=== PATIENT | female | born 1965 | race Caucasian/White ===

== ENCOUNTER → 2018-01-30 15:43 | Outpatient (CLI) | payer OTHER, SELFPAY ==
--- NOTE | 2018-01-30 15:44 | DI.RAD.S_ITS ---
PROCEDURE: XR HIP W PEL IF DONE LT 2V INDICATIONS: increasing left hip pain x6 months TECHNIQUE: AP pelvis with lateral view(s) of the left hip(s). COMPARISON: None. FINDINGS: Bones: No fractures or dislocations. Pelvic ring appears intact. No suspicious bony lesions. Soft tissues: The visualized bowel gas pattern is normal. No suspicious soft tissue calcifications. IMPRESSION: No trauma found. Mild to moderate symmetric hip joint osteoarthritis is present, and a source of asymmetric left-sided predominant hip pain is not found. Dictated by: Sachin Ramirez M.D. on 01/30/2018 at 17:19 Approved by: Sachin Ramirez M.D. on 01/30/2018 at 17:19
== END ==
PROVIDERS: PCP Family Medicine; Visit Provider Family Medicine
DX: M16.12 Unilateral primary osteoarthritis, left hip (principal); M25.552 Pain in left hip
CPT/HCPCS: 73502

== ENCOUNTER 2018-05-08 16:45 | Outpatient (RCR) | payer OTHER, SELFPAY ==
--- NOTE | 2018-04-03 17:20 | PT.OIE ---
Current Diagnoses Unilateral primary osteoarthritis, left hip (04/03/18) Stiffness of left hip, not elsewhere classified (04/03/18) Muscle weakness (generalized) (04/03/18) Past Medical History (Last Reviewed 02/02/18 @ 15:53 by Taty Goldsmith DO) Colon polyps (Chronic ~2014) History of cold sores (Chronic) Hypothyroidism (Chronic ~2006) Migraines (Chronic ~2007) Psoriasis (Chronic ~1984) Scoliosis (Chronic) Voice absence (Chronic) Abnormal Pap smear of cervix (Resolved ~1989) Chicken pox (Resolved ~1973) Collapsed lung (Resolved ~2006) Mumps (Resolved ~1974) Past Surgical History (Last Reviewed 02/02/18 @ 15:53 by Taty Goldsmith DO) Anesthesia (Resolved) Fracture of larynx (Resolved ~2006) History of throat surgery (Resolved) History of third molar tooth extraction (~1989) Provider Visit Care Team Role Provider Type Taty Goldsmith DO Attending Provider Physician Family Provider Primary Care Provider Specialty: Family Practice Address: [address] [place] [address], [facility] Email: [email or web address] Physical Therapy Initial Evaluation PT-OP-A Visit Information Start: 04/03/18 17:25 Freq: Status: Active Protocol: Document 04/03/18 17:20 [facility] (Rec: 04/03/18 17:58 [facility] [email or web address]) Out-Patient Physical Therapy Visit Information Visit Information Visit Type Initial Evaluation Visit Start Time 16:40 Visit Stop Time 17:20 Total Visit Minutes 40 Visit Number 1 Number of [employer] CAR [employer]IVER Visits 0 Evaluation Information Evaluation Date 04/03/18 PT-OP-B Current Condition Start: 04/03/18 17:25 Freq: Status: Active Protocol: Document 04/03/18 17:20 [facility] (Rec: 04/03/18 17:58 [facility] [email or web address]) Current Condition History of Current Condition Onset Date 6 mos. ago Current Complaints L groin pain, sometimes posterior hip/sciatic pain L side History of Current Condition Pt is a 52 y/o female presenting to physical therapy with a c/o L groin and hip pain, along with occasional low back and sciatic-type pain . Pt notes that the pain is variable, no specific pattern with onset or increase of pain . 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 She also admits that 6 months ago she now has a 2 y/o living with her, which has increased the amount of bending and lifting she is required to do as well. Imaging done of the L hip (see below). No imaging for low back performed. Pain reported down to the anterior knee, denies pain below the knee with verbal questioning. She works at a desk, but she does have a standing desk option while at work. Prior Treatments and Tests L hip radiograph- mild to moderate symmetric hip joint OA present. Future Testing and Treatments Planned low back radiograph if no progress with PT. Treatment Goals Patient/Caregiver Goals decrease pain Prior Functional Status Baseline Function- Gait indep. community ambulator without device Current Functional Impairments (Reported) Functional Limitations- Mobility/Gait pain limits her ability to care for her son and 2 y/o family member. PT-OP-C Subjective Start: 04/03/18 17:25 Freq: Status: Active Protocol: Document 04/03/18 17:20 [facility] (Rec: 04/03/18 17:58 [facility] [email or web address]) OP-PT Pain Assessment Location L groin Pain Location Details range 2-9 Intensity 9 Scale Used Numeric (1 - 10) Description Sharp Shooting Stabbing Frequency Intermittent Pain Alleviating Factors None PT-OP-F Manual Assessment Start: 04/03/18 17:25 Freq: Status: Active Protocol: Document 04/03/18 17:20 [facility] (Rec: 04/03/18 17:58 [facility] [email or web address]) Manual Assessments Soft Tissue Assessment Soft Tissue Mobility Assessment tender to palpation: L IT band , piriformis, TFL PT-OP-G Mobility & Gait Start: 04/03/18 17:25 Freq: Status: Active Protocol: Document 04/03/18 17:20 [facility] (Rec: 04/03/18 17:58 [facility] [email or web address]) OP Gait Assessment Gait Deviations General Gait Pattern Antalgic Lateral Trunk Lean Factors Limiting Gait Function Factors Limiting Gait Function Limited Range of Motion Pain PT-OP-H Neuro Start: 04/03/18 17:25 Freq: Status: Active Protocol: Document 04/03/18 17:20 [facility] (Rec: 04/03/18 17:58 [facility] [email or web address]) Sensation Evaluation Gross Sensation Gross Sensation WNL Deep Tendon Reflex & Clonus Assessment Deep Tendon Reflex Bilateral Achilles Deep Tendon Reflex 1+ Diminished Bilateral Patellar Deep Tendon Reflex 2+ Normal Ankle Clonus Bilateral Clonus Assessment Absent PT-OP-J Posture/Palpation/Skin Start: 04/03/18 17:25 Freq: Status: Active Protocol: Document 04/03/18 17:20 [facility] (Rec: 04/03/18 17:58 [facility] [email or web address]) Posture Evaluation Comments Posture Comments R elevated iliac crest in standing, slight R lateral trunk lean PT-OP-K Range of Motion Start: 04/03/18 17:25 Freq: Status: Active Protocol: Document 04/03/18 17:20 [facility] (Rec: 04/03/18 17:58 [facility] [email or web address]) Lumbar Spine Range of Motion Lumbar Spine Active Degrees Testing Position Standing Flexion 70 Extension 14 Comments no pain Hip Goniometric Range of Motion Hip Measured in Degrees Right Passive Testing Position Supine Flexion w/Knee Flexed 110 Internal Rotation 30 External Rotation 60 Left Passive Testing Position Supine Flexion w/Knee Flexed 110 Internal Rotation 20 External Rotation 35 PT-OP-L Special Tests Start: 04/03/18 17:25 Freq: Status: Active Protocol: Document 04/03/18 17:20 [facility] (Rec: 04/03/18 17:58 [facility] [email or web address]) Special Tests Lumbar Spine Special Tests Straight Leg Raise Test Results negative Slump Test Results negative Comments femoral and sciatic Prone Instability Test Test Results negative Hip Special Tests Scour Test Test Results negative CLEO Test Results positive L, negative R Buttocks Sign Test Results negative Other Special Tests Special Tests SI joint provocation: negative bilaterally PT-OP-M Strength Start: 04/03/18 17:25 Freq: Status: Active Protocol: Document 04/03/18 17:20 [facility] (Rec: 04/03/18 17:58 [facility] [email or web address]) Hip Strength Hip Manual Muscle Testing Right Flexion (L2) 5 Normal Abduction 3+ Fair+ Adduction 5 Normal External Rotation 4 Good Internal Rotation 5 Normal Left Flexion (L2) 4 Good Abduction 3 Fair Adduction 4+ Good+ External Rotation 4- Good- Internal Rotation 4 Good Knee Strength Knee Manual Muscle Testing Right Flexion (S2) 5 Normal Extension (L3) 5 Normal Left Flexion (S2) 5 Normal Extension (L3) 5 Normal Ankle/Foot Strength Ankle and Foot Manual Muscle Testing Right Dorsiflexion (L4) 5 Normal Left Dorsiflexion (L4) 5 Normal Toe Strength Toe Manual Muscle Testing Right Great Toe Extension 5 Normal Left Great Toe Extension 4 Good PT-OP-Q Treatments Start: 04/03/18 17:25 Freq: Status: Active Protocol: Document 04/03/18 17:20 [facility] (Rec: 04/03/18 17:58 [facility] [email or web address]) Therapeutic Exercises Supine Exercises figure 4 stretch Side left Reps/Minutes 2x15 sec piriformis stretch Side left Reps/Minutes 2x15 sec Transverse abdominal activation Side bilateral Reps/Minutes 5 Comments 5 sec hold Sidelying Exercises clamshell Side left Reps/Minutes 1x10 PT-OP-T Assessment and Plan Start: 04/03/18 17:25 Freq: Status: Active Protocol: Document 04/03/18 17:20 [facility] (Rec: 04/03/18 17:58 [facility] [email or web address]) Physical Therapy Assessment Rehab Potential Rehabilitation Potential Good Evaluation Complexity Number of Personal Factors/Comorbidities 1-2 Number of Body Systems Impaired 3 Clinical Presentation at Evaluation Stable Impairments Impairments Activity Tolerance Functional Activities Functional Mobility Gait Pain Posture ROM Soft Tissue Mobility Strength Goals L hip ROM Impairment impaired L hip ROM Compound Mixer Goal (LTG) PROM L hip to equal to R non- affected side prior to d/c. LTG Duration 8 weeks LE weakness Impairment Lower extremity weakness Short Term Goal (STG) hip abduction 4-/5 or greater bilaterally, L hip 4+/5 or greater with manual muscle testing. STG Duration 4 weeks Compound Mixer Goal (LTG) Bilateral hip abduction 4/5 or greater, and L hip 5/5 with manual muscle testing. LTG Duration 8 weeks pain Impairment L hip and groin pain 9/10 Short Term Goal (STG) Decrease pain to 6/10 or less. STG Duration 4 weeks Compound Mixer Goal (LTG) Decrease pain to 4/10 or less, allowing pt to tolerate playing with her 2 y/o family member and assist son with transfers. LTG Duration 8 weeks Lower Extremity Functional Scale Impairment decreased functional activity tolerance (LEFS) Short Term Goal (STG) 55/80 or greater with Lower Extremity Functional Scale to demonstrate improvements with functional activity tolerance. STG Duration 4 weeks Compound Mixer Goal (LTG) 65/80 or greater with Lower Extremity Functional Scale to demonstrate improvements with functional activity tolerance. LTG Duration 8 weeks Assessment Summary Assessment Pt presents with signs consistent of L hip OA and impingement. Sciatic-like symptoms unable to be reproduced today, and lumbar testing negative at this time. Pt admits that she has had no issues with low back today, but that does come and go, therefore will continue to monitor this. Pt's L hip ROM is limited, as well as weakness demonstrated in the L hip in all manual muscle testing. Knee strength was normal, however, great toe extension graded weaker on the L compared to the R, therefore lumbar etiology cannot be ruled out yet. Pt would benefit from manual therapy to improve joint mobility and ROM and decrease tension in soft tissue, LE strengthening, gait training, and core stability to improve standing posture and overall activity tolerance. Physical Therapy Plan Frequency and Duration Frequency of Treatment 2x/Week Duration of Treatment 8 weeks Plan of Care Start Date 04/03/18 Plan of Care End Date 05/29/18 Therapeutic Interventions Therapeutic Interventions Aquatic Therapy Gait Training Home Exercise Program Joint Mobilizations Manual Therapy Neuromuscular Re-education Orthotic/Prosthetic Management Patient/Caregiver Education Self-Care/Home Management Sensory Integration Soft Tissue Mobilization Taping Therapeutic Activities Therapeutic Exercises Modalities Cold Pack/Ice Massage Electric Stimulation Hot Packs Traction- Mechanical Ultrasound Next Visit Focus/Plan Next Note Type Treatment Note Next Visit Plan L hip SLR, Shuttle Recovery leg press, recumbent stepper; manual joint moblizations and STR
--- NOTE | 2018-04-10 17:25 | PT.OTN ---
Current Diagnoses Unilateral primary osteoarthritis, left hip (04/10/18) Physical Therapy Treatment Note PT-OP-A Visit Information Start: 04/03/18 17:25 Freq: Status: Active Protocol: Document 04/10/18 17:25 [facility] (Rec: 04/10/18 17:32 [facility] [email or web address]) Out-Patient Physical Therapy Visit Information Visit Information Visit Type Treatment Note Visit Start Time 16:40 Visit Stop Time 17:25 Total Visit Minutes 45 Visit Number 2 Number of BANQUET LEAD Visits 0 Evaluation Information Evaluation Date 04/03/18 PT-OP-B Current Condition Start: 04/03/18 17:25 Freq: Status: Active Protocol: Document 04/03/18 17:20 [facility] (Rec: 04/03/18 17:58 [facility] [email or web address]) Current Condition History of Current Condition Onset Date 6 mos. ago Current Complaints L groin pain, sometimes posterior hip/sciatic pain L side History of Current Condition Pt is a 52 y/o female presenting to physical therapy with a c/o L groin and hip pain, along with occasional low back and sciatic-type pain . Pt notes that the pain is variable, no specific pattern with onset or increase of pain . 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 She also admits that 6 months ago she now has a 2 y/o living with her, which has increased the amount of bending and lifting she is required to do as well. Imaging done of the L hip (see below). No imaging for low back performed. Pain reported down to the anterior knee, denies pain below the knee with verbal questioning. She works at a desk, but she does have a standing desk option while at work. Prior Treatments and Tests L hip radiograph- mild to moderate symmetric hip joint OA present. Future Testing and Treatments Planned low back radiograph if no progress with PT. Treatment Goals Patient/Caregiver Goals decrease pain Prior Functional Status Baseline Function- Gait indep. community ambulator without device Current Functional Impairments (Reported) Functional Limitations- Mobility/Gait pain limits her ability to care for her son and 2 y/o family member. PT-OP-C Subjective Start: 04/03/18 17:25 Freq: Status: Active Protocol: Document 04/10/18 17:25 [facility] (Rec: 04/10/18 17:32 [facility] [email or web address]) OP-PT Subjective Patient Comments Patient Comments Pt is feeling better, less pain in the groin and L hip while at work over the past 2 days. PT-OP-F Manual Assessment Start: 04/03/18 17:25 Freq: Status: Active Protocol: Document 04/10/18 17:25 [facility] (Rec: 04/10/18 17:32 [facility] [email or web address]) Manual Assessments Joint Mobility Assessment Joint Mobility Assessment (+) impingement L hip @ 100 deg flexion with knee bent; after manual therapy, up to 110 deg. without pain. PT-OP-G Mobility & Gait Start: 04/03/18 17:25 Freq: Status: Active Protocol: Document 04/03/18 17:20 [facility] (Rec: 04/03/18 17:58 [facility] [email or web address]) OP Gait Assessment Gait Deviations General Gait Pattern Antalgic Lateral Trunk Lean Factors Limiting Gait Function Factors Limiting Gait Function Limited Range of Motion Pain PT-OP-H Neuro Start: 04/03/18 17:25 Freq: Status: Active Protocol: Document 04/03/18 17:20 [facility] (Rec: 04/03/18 17:58 [facility] [email or web address]) Sensation Evaluation Gross Sensation Gross Sensation WNL Deep Tendon Reflex & Clonus Assessment Deep Tendon Reflex Bilateral Achilles Deep Tendon Reflex 1+ Diminished Bilateral Patellar Deep Tendon Reflex 2+ Normal Ankle Clonus Bilateral Clonus Assessment Absent PT-OP-J Posture/Palpation/Skin Start: 04/03/18 17:25 Freq: Status: Active Protocol: Document 04/03/18 17:20 [facility] (Rec: 04/03/18 17:58 [facility] [email or web address]) Posture Evaluation Comments Posture Comments R elevated iliac crest in standing, slight R lateral trunk lean PT-OP-K Range of Motion Start: 04/03/18 17:25 Freq: Status: Active Protocol: Document 04/03/18 17:20 [facility] (Rec: 04/03/18 17:58 [facility] [email or web address]) Lumbar Spine Range of Motion Lumbar Spine Active Degrees Testing Position Standing Flexion 70 Extension 14 Comments no pain Hip Goniometric Range of Motion Hip Measured in Degrees Right Passive Testing Position Supine Flexion w/Knee Flexed 110 Internal Rotation 30 External Rotation 60 Left Passive Testing Position Supine Flexion w/Knee Flexed 110 Internal Rotation 20 External Rotation 35 PT-OP-L Special Tests Start: 04/03/18 17:25 Freq: Status: Active Protocol: Document 04/03/18 17:20 [facility] (Rec: 04/03/18 17:58 [facility] [email or web address]) Special Tests Lumbar Spine Special Tests Straight Leg Raise Test Results negative Slump Test Results negative Comments femoral and sciatic Prone Instability Test Test Results negative Hip Special Tests Scour Test Test Results negative CLEO Test Results positive L, negative R Buttocks Sign Test Results negative Other Special Tests Special Tests SI joint provocation: negative bilaterally PT-OP-M Strength Start: 04/03/18 17:25 Freq: Status: Active Protocol: Document 04/03/18 17:20 [facility] (Rec: 04/03/18 17:58 [facility] [email or web address]) Hip Strength Hip Manual Muscle Testing Right Flexion (L2) 5 Normal Abduction 3+ Fair+ Adduction 5 Normal External Rotation 4 Good Internal Rotation 5 Normal Left Flexion (L2) 4 Good Abduction 3 Fair Adduction 4+ Good+ External Rotation 4- Good- Internal Rotation 4 Good Knee Strength Knee Manual Muscle Testing Right Flexion (S2) 5 Normal Extension (L3) 5 Normal Left Flexion (S2) 5 Normal Extension (L3) 5 Normal Ankle/Foot Strength Ankle and Foot Manual Muscle Testing Right Dorsiflexion (L4) 5 Normal Left Dorsiflexion (L4) 5 Normal Toe Strength Toe Manual Muscle Testing Right Great Toe Extension 5 Normal Left Great Toe Extension 4 Good PT-OP-Q Treatments Start: 04/03/18 17:25 Freq: Status: Active Protocol: Document 04/10/18 17:25 [facility] (Rec: 04/10/18 17:32 [facility] [email or web address]) Cardio Equipment Recumbent Elliptical (Biodex) Duration (Minutes) 5 Resistance 1 Gym Equipment Shuttle Recovery Bilateral Squats Details L2 band around lower thighs Resistance 75 lbs Shuttle Recovery Platform Stable Reps/Time x20 Therapeutic Ball bridging Exercise Details bridging with ball Ball Size/Color 55 cm Body Position Supine Reps/Duration x10 LTR Exercise Details lower trunk rotation Ball Size/Color 55 cm Body Position Supine Reps/Duration x10 Therapeutic Exercises Supine Exercises SLR flexion Supine Exercise Name straight leg raise- hip flexion Side left Reps/Minutes x10 PPT Supine Exercise Name posterior pelvic tilt Side bilateral Reps/Minutes x10 figure 4 stretch Side left Reps/Minutes 2x15 sec piriformis stretch Side left Reps/Minutes 2x15 sec Transverse abdominal activation Side bilateral Reps/Minutes 5 Comments 5 sec hold Sidelying Exercises clamshell Side left Reps/Minutes 1x12 Manual Therapy Treatment Joint Mobilizations L hip Joint L hip Direction inferior, lateral Grade III Body Position Hooklying Reps/Duration 6 min Manual Techniques MET Type R hip flexion, L hip extension followed by B hip adduction Body Position Hooklying Reps/Duration 4 min Comments to correct L anterior ilial rotation. PT-OP-T Assessment and Plan Start: 04/03/18 17:25 Freq: Status: Active Protocol: Document 04/10/18 17:25 [facility] (Rec: 04/10/18 17:32 [facility] [email or web address]) Physical Therapy Assessment Assessment Summary Assessment Pt able to flex hip to 110 degrees without c/o pain in the groin today after manual therapy (hip + knee flexion). Pt able to perform HEP with cuing, given sheet to recall exercises. Pt does have excessive genu valgum with Shuttle leg press, but band around thighs assisting with visual and tactile cuing. Physical Therapy Plan Frequency and Duration Frequency of Treatment 2x/Week Duration of Treatment 8 weeks Plan of Care Start Date 04/03/18 Plan of Care End Date 05/29/18 Next Visit Focus/Plan Next Note Type Treatment Note Next Visit Plan hip extension/gluteal strengthening, review HEP
--- NOTE | 2018-04-24 17:26 | PT.OTN ---
Current Diagnoses Unilateral primary osteoarthritis, left hip (04/24/18) Physical Therapy Treatment Note PT-OP-A Visit Information Start: 04/03/18 17:25 Freq: Status: Active Protocol: Document 04/24/18 17:26 [facility] (Rec: 04/24/18 17:39 [facility] [email or web address]) Out-Patient Physical Therapy Visit Information Visit Information Visit Type Treatment Note Visit Start Time 16:46 Visit Stop Time 17:26 Total Visit Minutes 40 Visit Number 3 Number of HAT SIZER Visits 0 Evaluation Information Evaluation Date 04/03/18 PT-OP-B Current Condition Start: 04/03/18 17:25 Freq: Status: Active Protocol: Document 04/03/18 17:20 [facility] (Rec: 04/03/18 17:58 [facility] [email or web address]) Current Condition History of Current Condition Onset Date 6 mos. ago Current Complaints L groin pain, sometimes posterior hip/sciatic pain L side History of Current Condition Pt is a 52 y/o female presenting to physical therapy with a c/o L groin and hip pain, along with occasional low back and sciatic-type pain . Pt notes that the pain is variable, no specific pattern with onset or increase of pain . 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 She also admits that 6 months ago she now has a 2 y/o living with her, which has increased the amount of bending and lifting she is required to do as well. Imaging done of the L hip (see below). No imaging for low back performed. Pain reported down to the anterior knee, denies pain below the knee with verbal questioning. She works at a desk, but she does have a standing desk option while at work. Prior Treatments and Tests L hip radiograph- mild to moderate symmetric hip joint OA present. Future Testing and Treatments Planned low back radiograph if no progress with PT. Treatment Goals Patient/Caregiver Goals decrease pain Prior Functional Status Baseline Function- Gait indep. community ambulator without device Current Functional Impairments (Reported) Functional Limitations- Mobility/Gait pain limits her ability to care for her son and 2 y/o family member. PT-OP-C Subjective Start: 04/03/18 17:25 Freq: Status: Active Protocol: Document 04/24/18 17:26 [facility] (Rec: 04/24/18 17:39 [facility] [email or web address]) OP-PT Subjective Patient Comments Patient Comments Pt states that her L hip and groin has not been painful this past week, but has had intermittent low back pain. PT-OP-F Manual Assessment Start: 04/03/18 17:25 Freq: Status: Active Protocol: Document 04/10/18 17:25 [facility] (Rec: 04/10/18 17:32 [facility] [email or web address]) Manual Assessments Joint Mobility Assessment Joint Mobility Assessment (+) impingement L hip @ 100 deg flexion with knee bent; after manual therapy, up to 110 deg. without pain. PT-OP-G Mobility & Gait Start: 04/03/18 17:25 Freq: Status: Active Protocol: Document 04/03/18 17:20 [facility] (Rec: 04/03/18 17:58 [facility] [email or web address]) OP Gait Assessment Gait Deviations General Gait Pattern Antalgic Lateral Trunk Lean Factors Limiting Gait Function Factors Limiting Gait Function Limited Range of Motion Pain PT-OP-H Neuro Start: 04/03/18 17:25 Freq: Status: Active Protocol: Document 04/03/18 17:20 [facility] (Rec: 04/03/18 17:58 [facility] [email or web address]) Sensation Evaluation Gross Sensation Gross Sensation WNL Deep Tendon Reflex & Clonus Assessment Deep Tendon Reflex Bilateral Achilles Deep Tendon Reflex 1+ Diminished Bilateral Patellar Deep Tendon Reflex 2+ Normal Ankle Clonus Bilateral Clonus Assessment Absent PT-OP-J Posture/Palpation/Skin Start: 04/03/18 17:25 Freq: Status: Active Protocol: Document 04/03/18 17:20 [facility] (Rec: 04/03/18 17:58 [facility] [email or web address]) Posture Evaluation Comments Posture Comments R elevated iliac crest in standing, slight R lateral trunk lean PT-OP-K Range of Motion Start: 04/03/18 17:25 Freq: Status: Active Protocol: Document 04/03/18 17:20 [facility] (Rec: 04/03/18 17:58 [facility] [email or web address]) Lumbar Spine Range of Motion Lumbar Spine Active Degrees Testing Position Standing Flexion 70 Extension 14 Comments no pain Hip Goniometric Range of Motion Hip Measured in Degrees Right Passive Testing Position Supine Flexion w/Knee Flexed 110 Internal Rotation 30 External Rotation 60 Left Passive Testing Position Supine Flexion w/Knee Flexed 110 Internal Rotation 20 External Rotation 35 PT-OP-L Special Tests Start: 04/03/18 17:25 Freq: Status: Active Protocol: Document 04/03/18 17:20 [facility] (Rec: 04/03/18 17:58 [facility] [email or web address]) Special Tests Lumbar Spine Special Tests Straight Leg Raise Test Results negative Slump Test Results negative Comments femoral and sciatic Prone Instability Test Test Results negative Hip Special Tests Scour Test Test Results negative CLEO Test Results positive L, negative R Buttocks Sign Test Results negative Other Special Tests Special Tests SI joint provocation: negative bilaterally PT-OP-M Strength Start: 04/03/18 17:25 Freq: Status: Active Protocol: Document 04/03/18 17:20 [facility] (Rec: 04/03/18 17:58 [facility] [email or web address]) Hip Strength Hip Manual Muscle Testing Right Flexion (L2) 5 Normal Abduction 3+ Fair+ Adduction 5 Normal External Rotation 4 Good Internal Rotation 5 Normal Left Flexion (L2) 4 Good Abduction 3 Fair Adduction 4+ Good+ External Rotation 4- Good- Internal Rotation 4 Good Knee Strength Knee Manual Muscle Testing Right Flexion (S2) 5 Normal Extension (L3) 5 Normal Left Flexion (S2) 5 Normal Extension (L3) 5 Normal Ankle/Foot Strength Ankle and Foot Manual Muscle Testing Right Dorsiflexion (L4) 5 Normal Left Dorsiflexion (L4) 5 Normal Toe Strength Toe Manual Muscle Testing Right Great Toe Extension 5 Normal Left Great Toe Extension 4 Good PT-OP-Q Treatments Start: 04/03/18 17:25 Freq: Status: Active Protocol: Document 04/24/18 17:26 [facility] (Rec: 04/24/18 17:39 [facility] [email or web address]) Gym Equipment Shuttle Recovery Unilateral Squats Details L2 band around lower thighs Resistance 50 lbs Shuttle Recovery Platform Stable Reps/Time x20 each Bilateral Squats Details L2 band around lower thighs Resistance 75 lbs Shuttle Recovery Platform Stable Reps/Time x20 Shuttle Balance 1 Details Red- DL A/P and lateral Comments 4 min Therapeutic Ball DKC Exercise Details knee flex/extension with hip flex/extension, L2 resistance band around feet Ball Size/Color 55 cm Body Position Supine Reps/Duration 15 reps bridging Exercise Details bridging with ball Ball Size/Color 55 cm Body Position Supine Reps/Duration x10 LTR Exercise Details lower trunk rotation Ball Size/Color 55 cm Body Position Supine Reps/Duration x10 Therapeutic Exercises Supine Exercises Transverse abdominal activation Side bilateral Reps/Minutes 10 Comments 5 sec hold Sitting Exercises hip IR/ER Sitting Exercise Name hip IR and ER Side bilateral Resistance L1 band Reps/Minutes 10 each LE each direction Manual Therapy Treatment Soft Tissue Mobilization L QL Body Location L Quadratus lumborum Mobilization Type Myofascial Release Rolling Intensity/Depth Deep Body Position Sidelying paraspinals Body Location B paraspinals L4-5 Mobilization Type Myofascial Release Intensity/Depth Moderate Body Position Sidelying PT-OP-T Assessment and Plan Start: 04/03/18 17:25 Freq: Status: Active Protocol: Document 04/24/18 17:26 [facility] (Rec: 04/24/18 17:39 [facility] [email or web address]) Physical Therapy Assessment Assessment Summary Assessment Pt with tendency to shift pelvis to the R with lateral trunk flexion to the L while performing standing balance on Shuttle Balance Board, combined with LLE IR at the hip. Pt able to correct with cuing but requires increased UE assistance. Overall, pt is making good progress with less reported pain in the hip and groin on the L, but continues to demonstrate LE and core stability weakness with resulting impairments in body mechanics and standing posture . Physical Therapy Plan Frequency and Duration Frequency of Treatment 2x/Week Duration of Treatment 8 weeks Plan of Care Start Date 04/03/18 Plan of Care End Date 05/29/18 Next Visit Focus/Plan Next Note Type Treatment Note Next Visit Plan hip extension exercise, review TrAb activation.
--- NOTE | 2018-05-08 17:23 | PT.OTN ---
Current Diagnoses Unilateral primary osteoarthritis, left hip (05/08/18) Physical Therapy Treatment Note PT-OP-A Visit Information Start: 04/03/18 17:25 Freq: Status: Active Protocol: Document 05/08/18 17:23 [facility] (Rec: 05/08/18 17:33 [facility] [email or web address]) Out-Patient Physical Therapy Visit Information Visit Information Visit Type Treatment Note Visit Start Time 16:45 Visit Stop Time 17:23 Total Visit Minutes 38 Visit Number 4 Number of DELIVERY DIRECTOR Visits 0 Evaluation Information Evaluation Date 04/03/18 PT-OP-B Current Condition Start: 04/03/18 17:25 Freq: Status: Active Protocol: Document 04/03/18 17:20 [facility] (Rec: 04/03/18 17:58 [facility] [email or web address]) Current Condition History of Current Condition Onset Date 6 mos. ago Current Complaints L groin pain, sometimes posterior hip/sciatic pain L side History of Current Condition Pt is a 52 y/o female presenting to physical therapy with a c/o L groin and hip pain, along with occasional low back and sciatic-type pain . Pt notes that the pain is variable, no specific pattern with onset or increase of pain . 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 She also admits that 6 months ago she now has a 2 y/o living with her, which has increased the amount of bending and lifting she is required to do as well. Imaging done of the L hip (see below). No imaging for low back performed. Pain reported down to the anterior knee, denies pain below the knee with verbal questioning. She works at a desk, but she does have a standing desk option while at work. Prior Treatments and Tests L hip radiograph- mild to moderate symmetric hip joint OA present. Future Testing and Treatments Planned low back radiograph if no progress with PT. Treatment Goals Patient/Caregiver Goals decrease pain Prior Functional Status Baseline Function- Gait indep. community ambulator without device Current Functional Impairments (Reported) Functional Limitations- Mobility/Gait pain limits her ability to care for her son and 2 y/o family member. PT-OP-C Subjective Start: 04/03/18 17:25 Freq: Status: Active Protocol: Document 05/08/18 17:23 [facility] (Rec: 05/08/18 17:33 [facility] [email or web address]) OP-PT Subjective Patient Comments Patient Comments Pt has a standing desk at work , standing most of the day. She is better than when she first started PT, but still painful occasionally in the L groin. PT-OP-F Manual Assessment Start: 04/03/18 17:25 Freq: Status: Active Protocol: Document 04/10/18 17:25 [facility] (Rec: 04/10/18 17:32 [facility] [email or web address]) Manual Assessments Joint Mobility Assessment Joint Mobility Assessment (+) impingement L hip @ 100 deg flexion with knee bent; after manual therapy, up to 110 deg. without pain. PT-OP-G Mobility & Gait Start: 04/03/18 17:25 Freq: Status: Active Protocol: Document 04/03/18 17:20 [facility] (Rec: 04/03/18 17:58 [facility] [email or web address]) OP Gait Assessment Gait Deviations General Gait Pattern Antalgic Lateral Trunk Lean Factors Limiting Gait Function Factors Limiting Gait Function Limited Range of Motion Pain PT-OP-H Neuro Start: 04/03/18 17:25 Freq: Status: Active Protocol: Document 04/03/18 17:20 [facility] (Rec: 04/03/18 17:58 [facility] [email or web address]) Sensation Evaluation Gross Sensation Gross Sensation WNL Deep Tendon Reflex & Clonus Assessment Deep Tendon Reflex Bilateral Achilles Deep Tendon Reflex 1+ Diminished Bilateral Patellar Deep Tendon Reflex 2+ Normal Ankle Clonus Bilateral Clonus Assessment Absent PT-OP-J Posture/Palpation/Skin Start: 04/03/18 17:25 Freq: Status: Active Protocol: Document 04/03/18 17:20 [facility] (Rec: 04/03/18 17:58 [facility] [email or web address]) Posture Evaluation Comments Posture Comments R elevated iliac crest in standing, slight R lateral trunk lean PT-OP-K Range of Motion Start: 04/03/18 17:25 Freq: Status: Active Protocol: Document 04/03/18 17:20 [facility] (Rec: 04/03/18 17:58 [facility] [email or web address]) Lumbar Spine Range of Motion Lumbar Spine Active Degrees Testing Position Standing Flexion 70 Extension 14 Comments no pain Hip Goniometric Range of Motion Hip Measured in Degrees Right Passive Testing Position Supine Flexion w/Knee Flexed 110 Internal Rotation 30 External Rotation 60 Left Passive Testing Position Supine Flexion w/Knee Flexed 110 Internal Rotation 20 External Rotation 35 PT-OP-L Special Tests Start: 04/03/18 17:25 Freq: Status: Active Protocol: Document 04/03/18 17:20 [facility] (Rec: 04/03/18 17:58 [facility] [email or web address]) Special Tests Lumbar Spine Special Tests Straight Leg Raise Test Results negative Slump Test Results negative Comments femoral and sciatic Prone Instability Test Test Results negative Hip Special Tests Scour Test Test Results negative CLEO Test Results positive L, negative R Buttocks Sign Test Results negative Other Special Tests Special Tests SI joint provocation: negative bilaterally PT-OP-M Strength Start: 04/03/18 17:25 Freq: Status: Active Protocol: Document 04/03/18 17:20 [facility] (Rec: 04/03/18 17:58 [facility] [email or web address]) Hip Strength Hip Manual Muscle Testing Right Flexion (L2) 5 Normal Abduction 3+ Fair+ Adduction 5 Normal External Rotation 4 Good Internal Rotation 5 Normal Left Flexion (L2) 4 Good Abduction 3 Fair Adduction 4+ Good+ External Rotation 4- Good- Internal Rotation 4 Good Knee Strength Knee Manual Muscle Testing Right Flexion (S2) 5 Normal Extension (L3) 5 Normal Left Flexion (S2) 5 Normal Extension (L3) 5 Normal Ankle/Foot Strength Ankle and Foot Manual Muscle Testing Right Dorsiflexion (L4) 5 Normal Left Dorsiflexion (L4) 5 Normal Toe Strength Toe Manual Muscle Testing Right Great Toe Extension 5 Normal Left Great Toe Extension 4 Good PT-OP-Q Treatments Start: 04/03/18 17:25 Freq: Status: Active Protocol: Document 05/08/18 17:23 [facility] (Rec: 05/08/18 17:33 [facility] [email or web address]) Gym Equipment Shuttle Balance 1 Details Red- DL A/P neutral and semi- tandem and lateral Comments 10 min Therapeutic Ball bridging Exercise Details bridging with ball Ball Size/Color 55 cm Body Position Supine Reps/Duration x10 Therapeutic Exercises Supine Exercises figure 4 stretch Side left Reps/Minutes 2x15 sec Transverse abdominal activation Side bilateral Reps/Minutes 10 Comments 5 sec hold Standing Exercises HS and psoas stretch Side bilateral Equipment Used stairs Reps/Minutes 3x10 sec each Other Exercises psoas stretch Side bilateral Reps/Minutes 2x30 sec Comments half-kneeling Manual Therapy Treatment Soft Tissue Mobilization psoas Body Location L psoas Mobilization Type Myofascial Release Rolling Intensity/Depth Moderate Body Position Supine Joint Mobilizations L hip Joint L hip Direction inferior, lateral Grade III Body Position Hooklying Reps/Duration 6 min PT-OP-T Assessment and Plan Start: 04/03/18 17:25 Freq: Status: Active Protocol: Document 05/08/18 17:23 [facility] (Rec: 05/08/18 17:33 [facility] [email or web address]) Physical Therapy Assessment Assessment Summary Assessment Pt requires cuing to prevent genu valgus L knee positioning in standing, able to correct with cuing for soft knees. Pt tolerated exercise well, restricted in the L psoas but able to perform stretch in half-kneeling without reminders/cuing and good relief after stretch. Physical Therapy Plan Frequency and Duration Frequency of Treatment 2x/Week Duration of Treatment 8 weeks Plan of Care Start Date 04/03/18 Plan of Care End Date 05/29/18 Next Visit Focus/Plan Next Note Type Treatment Note Next Visit Plan hip strengthening
--- NOTE | 2018-07-10 15:00 | PT.OPDS ---
Current Diagnoses Unilateral primary osteoarthritis, left hip (05/08/18) Provider Visit Care Team Role Provider Type Taty Goldsmith DO Attending Provider Physician Family Provider Primary Care Provider Specialty: Family Practice Address: [address] [place] [address], [facility] Email: [email or web address] Visit Number Visit Number 4 Discharge Summary PT-OP-B Current Condition Start: 04/03/18 17:25 Freq: Status: Active Protocol: Document 04/03/18 17:20 [facility] (Rec: 04/03/18 17:58 [facility] [email or web address]) Current Condition History of Current Condition Onset Date 6 mos. ago Current Complaints L groin pain, sometimes posterior hip/sciatic pain L side History of Current Condition Pt is a 52 y/o female presenting to physical therapy with a c/o L groin and hip pain, along with occasional low back and sciatic-type pain . Pt notes that the pain is variable, no specific pattern with onset or increase of pain . 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 She also admits that 6 months ago she now has a 2 y/o living with her, which has increased the amount of bending and lifting she is required to do as well. Imaging done of the L hip (see below). No imaging for low back performed. Pain reported down to the anterior knee, denies pain below the knee with verbal questioning. She works at a desk, but she does have a standing desk option while at work. Prior Treatments and Tests L hip radiograph- mild to moderate symmetric hip joint OA present. Future Testing and Treatments Planned low back radiograph if no progress with PT. Treatment Goals Patient/Caregiver Goals decrease pain Prior Functional Status Baseline Function- Gait indep. community ambulator without device Current Functional Impairments (Reported) Functional Limitations- Mobility/Gait pain limits her ability to care for her son and 2 y/o family member. PT-OP-C Subjective Start: 04/03/18 17:25 Freq: Status: Active Protocol: Document 05/08/18 17:23 [facility] (Rec: 05/08/18 17:33 [facility] [email or web address]) OP-PT Subjective Patient Comments Patient Comments Pt has a standing desk at work , standing most of the day. She is better than when she first started PT, but still painful occasionally in the L groin. PT-OP-F Manual Assessment Start: 04/03/18 17:25 Freq: Status: Active Protocol: Document 04/10/18 17:25 [facility] (Rec: 04/10/18 17:32 [facility] [email or web address]) Manual Assessments Joint Mobility Assessment Joint Mobility Assessment (+) impingement L hip @ 100 deg flexion with knee bent; after manual therapy, up to 110 deg. without pain. PT-OP-G Mobility & Gait Start: 04/03/18 17:25 Freq: Status: Active Protocol: Document 04/03/18 17:20 [facility] (Rec: 04/03/18 17:58 [facility] [email or web address]) OP Gait Assessment Gait Deviations General Gait Pattern Antalgic Lateral Trunk Lean Factors Limiting Gait Function Factors Limiting Gait Function Limited Range of Motion Pain PT-OP-H Neuro Start: 04/03/18 17:25 Freq: Status: Active Protocol: Document 04/03/18 17:20 [facility] (Rec: 04/03/18 17:58 [facility] [email or web address]) Sensation Evaluation Gross Sensation Gross Sensation WNL Deep Tendon Reflex & Clonus Assessment Deep Tendon Reflex Bilateral Achilles Deep Tendon Reflex 1+ Diminished Bilateral Patellar Deep Tendon Reflex 2+ Normal Ankle Clonus Bilateral Clonus Assessment Absent PT-OP-J Posture/Palpation/Skin Start: 04/03/18 17:25 Freq: Status: Active Protocol: Document 04/03/18 17:20 [facility] (Rec: 04/03/18 17:58 [facility] [email or web address]) Posture Evaluation Comments Posture Comments R elevated iliac crest in standing, slight R lateral trunk lean PT-OP-K Range of Motion Start: 04/03/18 17:25 Freq: Status: Active Protocol: Document 04/03/18 17:20 [facility] (Rec: 04/03/18 17:58 [facility] [email or web address]) Lumbar Spine Range of Motion Lumbar Spine Active Degrees Testing Position Standing Flexion 70 Extension 14 Comments no pain Hip Goniometric Range of Motion Hip Measured in Degrees Right Passive Testing Position Supine Flexion w/Knee Flexed 110 Internal Rotation 30 External Rotation 60 Left Passive Testing Position Supine Flexion w/Knee Flexed 110 Internal Rotation 20 External Rotation 35 PT-OP-L Special Tests Start: 04/03/18 17:25 Freq: Status: Active Protocol: Document 04/03/18 17:20 [facility] (Rec: 04/03/18 17:58 [facility] [email or web address]) Special Tests Lumbar Spine Special Tests Straight Leg Raise Test Results negative Slump Test Results negative Comments femoral and sciatic Prone Instability Test Test Results negative Hip Special Tests Scour Test Test Results negative CLEO Test Results positive L, negative R Buttocks Sign Test Results negative Other Special Tests Special Tests SI joint provocation: negative bilaterally PT-OP-M Strength Start: 04/03/18 17:25 Freq: Status: Active Protocol: Document 04/03/18 17:20 [facility] (Rec: 04/03/18 17:58 [facility] [email or web address]) Hip Strength Hip Manual Muscle Testing Right Flexion (L2) 5 Normal Abduction 3+ Fair+ Adduction 5 Normal External Rotation 4 Good Internal Rotation 5 Normal Left Flexion (L2) 4 Good Abduction 3 Fair Adduction 4+ Good+ External Rotation 4- Good- Internal Rotation 4 Good Knee Strength Knee Manual Muscle Testing Right Flexion (S2) 5 Normal Extension (L3) 5 Normal Left Flexion (S2) 5 Normal Extension (L3) 5 Normal Ankle/Foot Strength Ankle and Foot Manual Muscle Testing Right Dorsiflexion (L4) 5 Normal Left Dorsiflexion (L4) 5 Normal Toe Strength Toe Manual Muscle Testing Right Great Toe Extension 5 Normal Left Great Toe Extension 4 Good PT-OP-T Assessment and Plan Start: 04/03/18 17:25 Freq: Status: Active Protocol: Document 07/10/18 14:54 [facility] (Rec: 07/10/18 15:00 [facility] [email or web address]) Physical Therapy Assessment Assessment Summary Assessment Pt attended 6 total physical therapy sessions, at which she was improving with less pain in the L hip and groin. She has an established HEP which she has a good understanding of. At this time, the pt reports that she is straining less with having to assist her grandchild and son less which has really helped decrease her pain. She feels like she is back to her prior level of function given our phone conversation today. However, objective measures were unable to be taken due to the pt having her final visit on May 07, 2018 and not scheduling further session beyond this time. Pt is comfortable with d/c per phone conversation. Physical Therapy Plan Discharge Physical Therapy Discharge Reasons No Longer Attending PT Discharge Comments pt verbalized okay to d/c.
== END 2018-08-13 12:36 ==
LOC: PHYS 16:45
PROVIDERS: Family Provider Family Medicine; PCP Family Medicine; Visit Provider Family Medicine
DX: M16.12 Unilateral primary osteoarthritis, left hip (principal)
CPT/HCPCS: 97110; 97112; 97140; 97161

== ENCOUNTER 2018-08-06 13:24 | Day surgery (SDC) | payer OTHER, SELFPAY ==
[2018-08-06 14:05] VITALS: BP 113/80; PULSE 83; RESP 16; TEMP 36.8; O2SAT 98
[2018-08-06] MEDS: SODIUM CHLORIDE 0.9% 1,000 ML 150 ML IV (14:18)
--- NOTE | 2018-08-06 15:03 | PM.HP.1 ---
History of Present Illness Date Patient Seen: 08/06/18 Time Patient Seen: 15:03 Chief complaint: colonoscopy [id number] Narrative: Pleasant 52 year old lady who is well known to me. Her last colonoscopy was right after she turns 48. At that time she was noted to have a 1 cm tubular adenoma at 40 cm from the anal verge. She returns for a screening study. She denies any new problems or symptoms related to the function of her GI tract. Patient History Family & Social History Social History: household members spouse lives independently Yes Tobacco & Substance use: Smoking Status Former smoker alcohol intake never Meds Home Medications Medication Instructions Recorded Confirmed Type levothyroxine [Synthroid] 125 mcg PO QAM #90 tab 06/18/17 08/06/18 Rx atorvastatin 20 mg tablet 20 mg PO HS #90 tab 07/04/18 08/06/18 Rx sumatriptan succinate [Imitrex] 50 mg PO QDAYP PRN 08/06/18 08/06/18 History Allergies Allergy/AdvReac Type Severity Reaction Status Date / Time sulfamethoxazole AdvReac Severe vomiting Verified 01/30/18 15:12 [From BACTRIM] trimethoprim [From BACTRIM] AdvReac Severe vomiting Verified 01/30/18 15:12 Review of Systems Review of Systems All systems reviewed & are unremarkable except as noted in HPI and below Exam Vital Signs (past 8 hours): - 08/06/18 14:05 Temperature 98.3 F Pulse Rate 83 Respiratory Rate 16 Blood Pressure 113/80 Pulse Oximetry 98 Oxygen Delivery Method Room Air Narrative Exam Narrative: Very pleasant and thin lady in no distress. She is chronically hoarse from a larngeal Injury in the distant past. HEENT: Normocephalic and atraumatic, pupils equal round reactive to light accommodation with anicteric sclera lungs: Clear to auscultation bilaterally Heart: Regular rate and rhythm without murmur rub or gallop abdomen: Soft, nontender, active bowel sounds extremities: Warm and well-perfused and without edema Assessment & Plan Assessment & Plan narrative: pleasant 52-year-old lady who had a colonoscopy 3 years ago with a 1 cm polyp removed. She is here for follow-up study. We discussed the risks and benefits of the procedure the patient expressed a desire to complete it today.
--- NOTE | 2018-08-06 15:06 | P.HP_ITS ---
History of Present Illness Date Patient Seen: 08/06/18 Time Patient Seen: 15:03 Chief complaint: colonoscopy [id number] Narrative: Pleasant 52 year old lady who is well known to me. Her last colonoscopy was right after she turns 48. At that time she was noted to have a 1 cm tubular adenoma at 40 cm from the anal verge. She returns for a screening study. She denies any new problems or symptoms related to the function of her GI tract. Patient History Family & Social History Social History: household members spouse lives independently Yes Tobacco & Substance use: Smoking Status Former smoker alcohol intake never Meds Home Medications Medication Instructions Recorded Confirmed Type levothyroxine [Synthroid] 125 mcg PO QAM #90 tab 06/18/17 08/06/18 Rx atorvastatin 20 mg tablet 20 mg PO HS #90 tab 07/04/18 08/06/18 Rx sumatriptan succinate [Imitrex] 50 mg PO QDAYP PRN 08/06/18 08/06/18 History Allergies Allergy/AdvReac Type Severity Reaction Status Date / Time sulfamethoxazole AdvReac Severe vomiting Verified 01/30/18 15:12 [From BACTRIM] trimethoprim [From BACTRIM] AdvReac Severe vomiting Verified 01/30/18 15:12 Review of Systems Review of Systems All systems reviewed & are unremarkable except as noted in HPI and below Exam Vital Signs (past 8 hours): - 08/06/18 14:05 Temperature 98.3 F Pulse Rate 83 Respiratory Rate 16 Blood Pressure 113/80 Pulse Oximetry 98 Oxygen Delivery Method Room Air Narrative Exam Narrative: Very pleasant and thin lady in no distress. She is chronical ly hoarse from a larngeal Injury in the distant past. HEENT: Normocephalic and atraumatic, pupils equal round reactive to light accommodation with anicteric sclera lungs: Clear to auscultation bilaterally Heart: Regular rate and rhythm without murmur rub or gallop abdomen: Soft, nontender, active bowel sounds extremities: Warm and well-perfused and without edema Assessment & Plan Assessment & Plan narrative: pleasant 52-year-old lady who had a colonoscopy 3 years ago with a 1 cm polyp removed. She is here for follow-up study. We discussed the risks and benefits of the procedure the patient expressed a desire to complete it today.
[2018-08-06] MEDS: fentaNYL 250 MCG/5 ML INJ IV (15:22)
[2018-08-06] MEDS: MIDAZOLAM 5 MG/5 ML VIAL IV (15:22)
[2018-08-06 15:40] VITALS: BP 117/68; PULSE 82; RESP 17; O2SAT 98
--- NOTE | 2018-08-06 15:41 | PM.OP.1 ---
Operative Date/Time/Diagnoses Date of procedure: 08/06/18 Time of procedure: 15:41 Pre-op diagnosis: Personal history of colon polyps Post-op diagnosis: same Procedure & Clinicians Procedure: colonoscopy to the cecum Same procedure as scheduled: Yes Indications: last colonoscopy 3 and half years ago with removal of 1 cm tubular polyp at 40 cm from the anal verge Surgeon: Chyna Knapp Anesthesia Type: Sedation ( Versed 10 mg; fentanyl 300 mcg) Operative Notes Findings: 1. Adequate prep 2. No polyps or mass lesions 3. No AV malformations 4. very tortuous and elongated colon. In order to reach the cecum, multiple changes of position, hydro dilation and external pressure were all required. 5. grade 2 internal hemorrhoids 6. mild diverticulosis limited to the sigmoid region. Primarily small pockets Closure Type: not applicable Specimen(s): none sent Procedure in detail: After obtaining informed consent, the patient was brought to the GI suite and placed in the left lateral decubitus position on the examination table. After placement of appropriate monitors, the patient was given incremental doses of Versed and Fentanyl until an appropriate level of sedation was achieved. A time out was held per SCOAP protocol. A digital rectal examination was performed and did not reveal any masses or obstructing lesions. The colonoscope was gently passed into the patient's anus and the entire colon navigated to the level of the cecum with significant difficulty due to a long and tortuous colon. Multiple changes of position, external pressure, and hydro dilation were all employed in order to navigate the entire extent of the organ. Once in the cecum, the scope was withdrawn being sure to go before and beyond all mucosal folds and prominences and get an excellent examination. The findings are noted above. At the level of the rectal vault, the scope was retroflexed and the internal anal canal was examined. The scope was straightened and air aspirated from the colon. The instrument was removed from the patient's body and the procedure was concluded. The patient was allowed to awaken from sedation without difficulty and taken to the post-anesthesia care unit in good condition. total sedation time 31 min total withdrawal time 12 min Complications: none Condition: stable Disposition: PACU Plan for aftercare: 1. Discharge to home 2. Plan for next colonoscopy in 5 years or as clinically indicated
[2018-08-06 15:45] VITALS: BP 117/82; PULSE 82; RESP 18; TEMP 36.6; O2SAT 95
[2018-08-06 16:15] VITALS: BP 138/87; PULSE 68; RESP 15; TEMP 36.2; O2SAT 98
== END 2018-08-06 16:25 | disposition home or self-care (01) ==
PROVIDERS: PCP Family Medicine; Visit Provider Surgery
PROC: 0DJD8ZZ Inspection of Lower Intestinal Tract, Via Natural or Artificial Opening Endoscopic (ICD-10-PCS; CPT 45378; principal; 2018-08-06 15:00)
DX: Z86.010 Personal history of colon polyps (principal); K64.1 Second degree hemorrhoids; K57.30 Diverticulosis of large intestine without perforation or abscess without bleeding; Z87.891 Personal history of nicotine dependence
CPT/HCPCS: 45378; 99152; 99153; J2250; J3010

== ENCOUNTER → 2018-11-27 09:12 | Outpatient (CLI) | payer OTHER, SELFPAY ==
[2018-11-27 11:06] LABS: Alanine Aminotransferase 16 IU/L (9-52); Albumin 4.2 g/dL (3.5-5.0); Albumin Globulin Ratio 1.4 (1.0-2.8); Alkaline Phosphatase 94 U/L (38-126); Aspartate Aminotransferase 22 IU/L (14-36); Bilirubin Total 0.4 mg/dL (0.2-1.3); Blood Urea Nitrogen 12 mg/dL (7-17); Calcium 9.2 mg/dL (8.4-10.2); Carbon Dioxide 27 mmol/L (22-32); Chloride 106 mmol/L (98-107); Cholesterol 151 mg/dL (140-199); Estimated Glomerular Filt Rate > 60.0 mL/min (>60); Globulin 2.9 g/dL (1.7-4.1); Glucose 89 mg/dL (70-100); HDL Cholesterol 80 mg/dL (40-60); HEMOLYSIS < 15 (0-50); LDL Cholesterol Calculated 61 mg/dL (<100); Potassium 4.6 mmol/L (3.4-5.1); Sodium 140 mmol/L (137-145); Total Protein 7.1 g/dL (6.3-8.2); Triglycerides 50 mg/dL (35-150)
[2018-11-27 11:35] LABS: TSH w/ Reflex to FT4 < 0.02 uIU/mL (0.47-4.68)
[2018-11-27 12:12] LABS: Free T4, Direct Thyroxine 1.73 ng/dL (0.78-2.19)
== END ==
PROVIDERS: PCP Family Medicine; Visit Provider Family Medicine
DX: E78.5 Hyperlipidemia, unspecified (principal); E03.9 Hypothyroidism, unspecified
CPT/HCPCS: 36415; 80053; 80061; 84439; 84443

== ENCOUNTER → 2019-07-09 17:21 | Outpatient (CLI) | payer OTHER, SELFPAY ==
[2019-07-09 20:09] LABS: TSH w/ Reflex to FT4 0.02 uIU/mL (0.47-4.68)
[2019-07-09 20:56] LABS: Free T4, Direct Thyroxine 1.44 ng/dL (0.78-2.19)
== END ==
PROVIDERS: PCP Family Medicine; Referring Provider Family Medicine; Visit Provider Family Medicine
DX: E03.9 Hypothyroidism, unspecified (principal)
CPT/HCPCS: 36415; 84439; 84443

== ENCOUNTER → 2019-10-22 17:23 | Outpatient (CLI) | payer OTHER, SELFPAY ==
[2019-10-22 18:52] LABS: Thyroid Stimulating Hormone 0.03 uIU/mL (0.47-4.68)
== END ==
PROVIDERS: PCP Family Medicine; Referring Provider Family Medicine; Visit Provider Family Medicine
DX: E03.9 Hypothyroidism, unspecified (principal)
CPT/HCPCS: 36415; 84443

== ENCOUNTER → 2019-11-01 14:14 | Outpatient (CLI) | payer OTHER, SELFPAY ==
--- NOTE | 2019-11-01 | DI.MG.S_ITS ---
BILATERAL DIGITAL SCREENING MAMMOGRAM 3D/2D WITH CAD: 11/01/2019 CLINICAL: Routine screening. Family history of breast cancer. Comparison is made to exams dated: 11/09/2016 mammogram, 10/28/2015 mammogram, and 10/20/2014 mammogram - [facility]. The tissue of both breasts is heterogeneously dense. This may lower the sensitivity of mammography. Current study was also evaluated with a Computer Aided Detection (CAD) system. No significant masses, calcifications, or other findings are seen in either breast. There has been no significant interval change. IMPRESSION: NEGATIVE There is no mammographic evidence of malignancy. A 1 year screening mammogram is recommended. This exam was interpreted at Station ID: [id number]. NOTE: For mammograms, a report in lay terms will be sent to the patient. Approximately 15% of breast malignancies will not be visualized mammographically. In the management of a palpable breast mass, a negative mammogram must not discourage biopsy of a clinically suspicious lesion. Electronically Signed By: Keenan cherry/agustin:11/03/2019 08:08:52 letter sent: Normal Exam ACR BI-RADS Category 1: Negative 3341F
== END ==
PROVIDERS: PCP Family Medicine; Referring Provider Family Medicine; Visit Provider Family Medicine
DX: Z12.31 Encounter for screening mammogram for malignant neoplasm of breast (principal); Z80.3 Family history of malignant neoplasm of breast
CPT/HCPCS: 77063; 77067

== ENCOUNTER → 2020-01-21 17:24 | Outpatient (CLI) | payer OTHER, SELFPAY ==
[2020-01-21 18:58] LABS: Free T4, Direct Thyroxine 1.04 ng/dL (0.78-2.19)
== END ==
PROVIDERS: PCP Family Medicine; Referring Provider Family Medicine; Visit Provider Family Medicine
DX: E03.9 Hypothyroidism, unspecified (principal)
CPT/HCPCS: 36415; 84439; 84443

== ENCOUNTER → 2020-02-25 13:02 | Outpatient (CLI) | payer OTHER, SELFPAY ==
[2020-02-25 15:25] LABS: Thyroid Stimulating Hormone 3.43 uIU/mL (0.47-4.68)
== END ==
PROVIDERS: PCP Family Medicine; Referring Provider Family Medicine; Visit Provider Family Medicine
DX: E03.9 Hypothyroidism, unspecified (principal)
CPT/HCPCS: 36415; 84443

== ENCOUNTER → 2020-02-27 09:41 | Outpatient (CLI) | payer OTHER, SELFPAY ==
--- NOTE | 2020-02-27 09:43 | DI.RAD.S_ITS ---
PROCEDURE: XR HIP W PEL IF DONE LT 2V INDICATIONS: left hip pain and left iliac crest pain TECHNIQUE: AP pelvis with lateral view(s) of the left hip. COMPARISON: [facility], JT, XR HIP W PEL IF DONE LT 2V, 01/30/2018, 15:25. FINDINGS: Bones: No fractures or dislocations. Pelvic ring appears intact. No suspicious bony lesions. Soft tissues: The visualized bowel gas pattern is normal. No suspicious soft tissue calcifications. 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 Dictated by: Sachin Ramirez M.D. on 02/27/2020 at 11:06 Approved by: Sachin Ramirez M.D. on 02/27/2020 at 11:09
[2020-02-27 11:09] LABS: Add Manual Diff / Slide Review NO; Basophils Absolute Auto 100 /uL (0-100); Basophils Percent Auto 2.4 % (0-2); Eosinophils Absolute Auto 300 /uL (0-450); Eosinophils Percent Auto 5.2 % (2-4); Hematocrit 39.7 % (36-46); Hemoglobin 13.6 g/dL (12.0-16.0); Lymphocytes Absolute Auto 1900 /uL (1100-4500); Lymphocytes Percent Auto 37.5 % (25-40); Mean Corpuscular HGB Conc 34.3 % (30-36); Mean Corpuscular Hemoglobin 31.2 PG (26-34); Mean Corpuscular Volume 90.9 fL (80-100); Monocytes Absolute Auto 300 /uL (0-900); Monocytes Percent Auto 5.6 % (3-14); Neutrophils Absolute Auto 2500 /uL (1500-7000); Neutrophils Percent Auto 49.3 % (50-75); Platelet Count 322 X10^3/uL (150-400); Red Blood Cell Count 4.36 X10^6/uL (4.0-5.2)
[2020-02-27 12:32] LABS: Alanine Aminotransferase 11 IU/L (<35); Albumin 4.5 g/dL (3.5-5.0); Albumin Globulin Ratio 1.4 (1.0-2.8); Alkaline Phosphatase 97 U/L (38-126); Amylase 229 U/L (30-110); Aspartate Aminotransferase 22 IU/L (14-36); BUN Creatinine Ratio 22.5 (6-22); Bilirubin Total 0.8 mg/dL (0.2-1.3); Blood Urea Nitrogen 16 mg/dL (7-17); Calcium 9.5 mg/dL (8.4-10.2); Carbon Dioxide 27 mmol/L (22-32); Chloride 105 mmol/L (98-107); Estimated Glomerular Filt Rate > 60.0 mL/min (>60); Globulin 3.3 g/dL (1.7-4.1); Glucose 95 mg/dL (70-100); HEMOLYSIS < 15 (0-50); Lipase 1516 U/L (23-300); Potassium 4.8 mmol/L (3.4-5.1); Sodium 137 mmol/L (137-145); Total Protein 7.8 g/dL (6.3-8.2)
== END ==
PROVIDERS: PCP Family Medicine; Referring Provider Family Medicine; Visit Provider Family Medicine
DX: M25.552 Pain in left hip (principal); R11.0 Nausea
CPT/HCPCS: 36415; 73502; 80053; 82150; 83690; 85025

== ENCOUNTER → 2020-03-04 09:32 | Outpatient (CLI) | payer OTHER, SELFPAY ==
--- NOTE | 2020-03-04 09:33 | DI.US.S_ITS ---
PROCEDURE: US ABDOMEN COMPLETE INDICATIONS: NAUSEA, ELEVATED LIVER ENZYMES, PANCREATITIS TECHNIQUE: Real-time scanning was performed of the abdominal and retroperitoneal organs, with image documentation. COMPARISON: None. FINDINGS: Liver: Liver is normal in size and homogeneous in echotexture. Gallbladder: 4 mm gallbladder polyp; otherwise normal gallbladder. Biliary ducts: Intrahepatic bile ducts are non-dilated. Extrahepatic bile duct caliber measures 5.5 mm. Normal is 6-7 mm or less in diameter, or 10 mm or less post-cholecystectomy. Pancreas: Visualized portions of the pancreas are sonographically normal. Spleen: Spleen is normal in size and homogeneous in echotexture. Kidneys: Kidneys are normal in size and echotexture. Right kidney measures 8.9 cm long; left kidney measures 10.6 cm long. No hydronephrosis or nephrolithiasis. No solid masses. Aorta: Visualized aorta is normal in caliber at less than 3 cm. Iliacs: Proximal common iliac arteries are normal in caliber at less than 2.5 cm. IVC: Intrahepatic inferior vena cava is patent. Miscellaneous: No free abdominal fluid. IMPRESSION: 4 mm gallbladder polyp; otherwise normal exam.. Dictated by: Ozzy Rae [facility] Interpreted: Sachin Ramirez MD on 03/04/2020 at 10:52 Approved by: Sachin Ramirez M.D. on 03/04/2020 at 14:22
== END ==
PROVIDERS: PCP Family Medicine; Referring Provider Family Medicine; Visit Provider Family Medicine
DX: K85.90 Acute pancreatitis without necrosis or infection, unspecified (principal); R11.0 Nausea; R74.8 Abnormal levels of other serum enzymes; K80.20 Calculus of gallbladder without cholecystitis without obstruction
CPT/HCPCS: 76700

== ENCOUNTER → 2020-03-18 15:12 | Outpatient (CLI) | payer OTHER, SELFPAY ==
--- NOTE | 2020-03-18 | DI.MRI.S_ITS ---
PROCEDURE: MR HIP LT WO CON INDICATIONS: Idiopathic aseptic necrosis of unspecified bone. Left hip pain TECHNIQUE: Noncontrast coronal T1 spin echo and STIR through the bony pelvis. Coronal and axial T2 fast spin echo with fat saturation, sagittal T1 spin echo, and oblique axial T2 fast spin echo with fat saturation through the hip. COMPARISON: None. FINDINGS: Image quality: Motion degraded examination. Bones and joints: No fracture identified. Sacroiliac joints are unremarkable in signal intensity. There is lower lumbar spondylosis and facet arthropathy. No pathologic hip joint effusion. No evidence of osteonecrosis. Tendons and ligaments: There is mild insertional gluteus medius and minimus tendinopathy. Proximal iliotibial band intact. Iliopsoas tendon intact. Origin of the hamstring tendon intact. The straight and reflected heads of the rectus femoris muscle origin appear intact Ligamentum teres appears intact where visualized. Labrum: Anterosuperior labral fraying is present and is poorly visualized. There is adjacent chondral loss, and degenerative cystic change, possible 5 mm paralabral cyst image 03/03. The alpha angle of the femur is within normal limits at less than 55 degrees. Soft tissues: Visualized muscles demonstrate normal bulk and internal signal. Quadratus femoris muscle normal. Proximal sciatic neurovascular bundle appears normal adjacent to the hamstring tendons. No free pelvic fluid. Bladder normal. Genitourinary structures and bowel loops appear normal where visualized. IMPRESSION: Motion degraded examination however suspect anterosuperior labral tear (which could be chronic/degenerative). Adjacent chondral loss and arthritic changes, in addition to paralabral cyst. Mild insertional gluteus minimus and medius tendinopathy. Dictated by: Stevan Oswald M.D. on 03/18/2020 at 16:58 Approved by: Stevan Oswald M.D. on 03/18/2020 at 17:07
[2020-03-18 16:41] LABS: Alanine Aminotransferase 20 IU/L (<35); Albumin 4.7 g/dL (3.5-5.0); Albumin Globulin Ratio 1.5 (1.0-2.8); Alkaline Phosphatase 97 U/L (38-126); Amylase 79 U/L (30-110); Aspartate Aminotransferase 26 IU/L (14-36); BUN Creatinine Ratio 21.6 (6-22); Bilirubin Total 0.4 mg/dL (0.2-1.3); Blood Urea Nitrogen 16 mg/dL (7-17); Calcium 9.7 mg/dL (8.4-10.2); Carbon Dioxide 30 mmol/L (22-32); Chloride 103 mmol/L (98-107); Estimated Glomerular Filt Rate > 60.0 mL/min (>60); Globulin 3.1 g/dL (1.7-4.1); Glucose 83 mg/dL (70-100); HEMOLYSIS < 15 (0-50); Lipase 200 U/L (23-300); Potassium 4.8 mmol/L (3.4-5.1); Sodium 139 mmol/L (137-145); Total Protein 7.8 g/dL (6.3-8.2)
== END ==
PROVIDERS: PCP Family Medicine; Referring Provider Orthopaedic Surgery; Visit Provider Orthopaedic Surgery
DX: M87.00 Idiopathic aseptic necrosis of unspecified bone (principal); R74.8 Abnormal levels of other serum enzymes; M25.552 Pain in left hip
CPT/HCPCS: 36415; 73721; 80053; 82150; 83690

== ENCOUNTER → 2020-12-17 14:25 | Outpatient (CLI) | payer OTHER, SELFPAY ==
--- NOTE | 2020-12-17 14:28 | DI.MG.S_ITS ---
BILATERAL DIGITAL SCREENING MAMMOGRAM 3D/2D WITH CAD: 12/17/2020 CLINICAL: Routine screening. Family history of breast cancer. Comparison is made to exams dated: 11/01/2019 mammogram, 11/09/2016 mammogram, and 10/28/2015 mammogram - [facility]. The tissue of both breasts is heterogeneously dense. This may lower the sensitivity of mammography. Current study was also evaluated with a Computer Aided Detection (CAD) system. No significant masses, calcifications, or other findings are seen in either breast. There has been no significant interval change. IMPRESSION: NEGATIVE There is no mammographic evidence of malignancy. A 1 year screening mammogram is recommended. This exam was interpreted at Station ID: [id number]. NOTE: For mammograms, a report in lay terms will be sent to the patient. Approximately 15% of breast malignancies will not be visualized mammographically. In the management of a palpable breast mass, a negative mammogram must not discourage biopsy of a clinically suspicious lesion. Electronically Signed By: Keenan cherry/agustin:12/17/2020 15:04:48 letter sent: Normal Exam ACR BI-RADS Category 1: Negative 3341F
== END ==
PROVIDERS: PCP Family Medicine; Referring Provider Family Medicine; Visit Provider Family Medicine
DX: Z12.31 Encounter for screening mammogram for malignant neoplasm of breast (principal); Z80.3 Family history of malignant neoplasm of breast
CPT/HCPCS: 77063; 77067

== ENCOUNTER → 2022-06-03 09:34 | Outpatient (CLI) | payer OTHER, SELFPAY ==
[2022-06-03 10:17] LABS: Add Manual Diff / Slide Review NO; Basophils Absolute Auto 100 /uL (0-100); Eosinophils Absolute Auto 500 /uL (0-450); Eosinophils Percent Auto 7.2 % (2-4); Hematocrit 40.2 % (36-46); Hemoglobin 13.1 g/dL (12.0-16.0); Lymphocytes Absolute Auto 2500 /uL (1100-4500); Lymphocytes Percent Auto 37.7 % (25-40); Mean Corpuscular HGB Conc 32.7 % (30-36); Mean Corpuscular Hemoglobin 28.9 PG (26-34); Mean Corpuscular Volume 88.4 fL (80-100); Monocytes Absolute Auto 400 /uL (0-900); Monocytes Percent Auto 5.9 % (3-14); Neutrophils Absolute Auto 3200 /uL (1500-7000); Neutrophils Percent Auto 47.2 % (50-75); Platelet Count 359 X10^3/uL (150-400); Red Blood Cell Count 4.54 X10^6/uL (4.0-5.2); White Blood Cell Count 6.7 X10^3/uL (4.5-11.0)
[2022-06-03 10:44] LABS: Alanine Aminotransferase 17 IU/L (<35); Albumin 4.4 g/dL (3.5-5.0); Albumin Globulin Ratio 1.4 (1.0-2.8); Alkaline Phosphatase 100 U/L (38-126); Aspartate Aminotransferase 21 IU/L (14-36); BUN Creatinine Ratio 17.9 (6-22); Bilirubin Total 0.5 mg/dL (0.2-1.3); Blood Urea Nitrogen 12 mg/dL (7-17); Calcium 9.2 mg/dL (8.4-10.2); Carbon Dioxide 25 mmol/L (22-32); Chloride 104 mmol/L (98-107); Cholesterol 183 mg/dL (140-199); Estimated Glomerular Filt Rate > 60 mL/min (>60); Globulin 3.2 g/dL (1.7-4.1); Glucose 92 mg/dL (70-100); HDL Cholesterol 81 mg/dL (40-60); HEMOLYSIS < 15 (0-50); LDL Cholesterol Calculated 84 mg/dL (<100); Potassium 4.4 mmol/L (3.4-5.1); Sodium 138 mmol/L (137-145); Total Protein 7.6 g/dL (6.3-8.2); Triglycerides 92 mg/dL (35-150)
[2022-06-03 11:08] LABS: TSH w/ Reflex to FT4 1.57 uIU/mL (0.47-4.68)
== END ==
PROVIDERS: PCP Family Medicine; Referring Provider Family Medicine; Visit Provider Family Medicine
DX: E03.9 Hypothyroidism, unspecified (principal); E78.5 Hyperlipidemia, unspecified
CPT/HCPCS: 36415; 80053; 80061; 84443; 85025

== ENCOUNTER → 2023-08-27 12:01 | Outpatient (CLI) | payer OTHER, SELFPAY ==
[2023-08-27 13:04] LABS: BUN Creatinine Ratio 19.4 (6-22); Blood Urea Nitrogen 14 mg/dL (7-17); Calcium 9.1 mg/dL (8.4-10.2); Carbon Dioxide 25 mmol/L (22-32); Chloride 107 mmol/L (98-107); Cholesterol 157 mg/dL (140-199); Estimated Glomerular Filt Rate > 60 mL/min (>60); Glucose 109 mg/dL (70-100); HDL Cholesterol 83 mg/dL (40-60); HEMOLYSIS < 15 (0-50); LDL Cholesterol Calculated 61 mg/dL (<100); Potassium 4.3 mmol/L (3.4-5.1); Sodium 137 mmol/L (137-145); Triglycerides 66 mg/dL (35-150)
[2023-08-27 13:08] LABS: High Sensitivity CRP - Cardiac 4.6 mg/L (1.0-3.0)
[2023-08-27 13:52] LABS: TSH w/ Reflex to FT4 1.94 uIU/mL (0.47-4.68)
[2023-08-27 15:47] LABS: HIV 1 & 2 Ab/Ag 4th Gen Combo NEGATIVE (NEGATIVE); Hep C Virus Ab w/Reflex Quant NEGATIVE s/c (NEGATIVE)
== END ==
PROVIDERS: PCP Family Medicine; Referring Provider Family Medicine; Visit Provider Family Medicine
DX: E03.9 Hypothyroidism, unspecified (principal); E78.5 Hyperlipidemia, unspecified; Z11.3 Encounter for screening for infections with a predominantly sexual mode of transmission; Z11.59 Encounter for screening for other viral diseases
CPT/HCPCS: 36415; 80048; 80061; 84443; 86140; 86803; 87389

== ENCOUNTER → 2023-09-10 11:16 | Outpatient (CLI) | payer OTHER, SELFPAY | PROVIDERS: PCP Family Medicine; Referring Provider Family Medicine; Visit Provider Family Medicine | DX: Z01.818 Encounter for other preprocedural examination (principal) | CPT/HCPCS: 93005 ==

== ENCOUNTER → 2023-09-26 16:37 | Outpatient (CLI) | payer OTHER, SELFPAY ==
[2023-09-26 17:22] LABS: Add Manual Diff / Slide Review NO; Basophils Absolute Auto 0 /uL (0-100); Basophils Percent Auto 0.5 % (0-2); Eosinophils Absolute Auto 600 /uL (0-450); Hematocrit 37.3 % (36-46); Hemoglobin 12.6 g/dL (12.0-16.0); Lymphocytes Absolute Auto 2500 /uL (1100-4500); Lymphocytes Percent Auto 26.9 % (25-40); Mean Corpuscular HGB Conc 33.7 % (30-36); Mean Corpuscular Hemoglobin 29.8 PG (26-34); Mean Corpuscular Volume 88.4 fL (80-100); Monocytes Absolute Auto 500 /uL (0-900); Neutrophils Absolute Auto 5700 /uL (1500-7000); Neutrophils Percent Auto 61.6 % (50-75); Platelet Count 393 X10^3/uL (150-400); Red Blood Cell Count 4.22 X10^6/uL (4.0-5.2); Red Cell Distribution Width 12.8 % (11.6-14.8); White Blood Cell Count 9.2 X10^3/uL (4.5-11.0)
[2023-09-26 17:27] LABS: Hemoglobin A1C% w Est Avg Glu 5.9 % (4.0-6.0)
[2023-09-26 17:34] LABS: Albumin 4.7 g/dL (3.5-5.0); BUN Creatinine Ratio 23.9 (6-22); Blood Urea Nitrogen 17 mg/dL (7-17); Calcium 8.5 mg/dL (8.4-10.2); Carbon Dioxide 28 mmol/L (22-32); Chloride 105 mmol/L (98-107); Estimated Glomerular Filt Rate > 60 mL/min (>60); Glucose 99 mg/dL (70-100); HEMOLYSIS < 15 (0-50); Potassium 4.4 mmol/L (3.4-5.1); Sodium 138 mmol/L (137-145)
[2023-09-26 17:44] LABS: Prealbumin 19.2 mg/dL (17.6-36.0)
[2023-09-26 17:51] LABS: Vitamin D 25 Hydroxy (D3) 20.9 ng/mL (30.0-100.0)
== END ==
PROVIDERS: PCP Family Medicine; Referring Provider Orthopaedic Surgery Adult Reconstructive Orthopaedic Surgery; Visit Provider Orthopaedic Surgery Adult Reconstructive Orthopaedic Surgery
DX: Z01.818 Encounter for other preprocedural examination (principal); R77.0 Abnormality of albumin; E55.9 Vitamin D deficiency, unspecified; R73.9 Hyperglycemia, unspecified; Z01.812 Encounter for preprocedural laboratory examination
CPT/HCPCS: 36415; 80048; 82040; 82306; 83036; 84134; 85025

== ENCOUNTER 2024-11-12 11:32 | Day surgery (SDC) | payer OTHER, SELFPAY ==
--- NOTE | 2024-11-12 | PATH_ITS ---
[facility] Accession Number: [id number] No. of containers..02 Tissue . 01 Material submitted: . PART A: body - COLON, POLYP @ 30CM PART B: body - COLON, POLYP @ 20CM . 01 Diagnosis: Part A: COLON, POLYP @ 30CM: Tubular adenoma. . Part B: COLON, POLYP @ 20CM: Colonic mucosa with no diagnostic alterations. No neoplasm or definite polyp identified. [facility] 11/19/2024 1526 Local . 01 Electronically signed: . Larry Salmeron MD, Pathologist NPI- [id number] . 01 Gross description: . Part A: POLYP @ 30CM: Received in formalin is 1 fragment(s) of ibrahim, soft tissue measuring 0.4 x 0.3 x 0.2 cm submitted entirely in 1 cassette(s) . Part B: POLYP @ 20CM: Received in formalin is 1 fragment(s) of ibrahim, soft tissue measuring 0.3 x 0.1 x 0.1 cm submitted entirely in 1 cassette(s) /CLEVE 11/19/2024 1526 Local . 01 Pathologist provided ICD-10: D12.6 . 01 CPT . 274890, [id number] Specimen Comment: A courtesy copy of this report has been sent to [phone] Performed at: [address] [address], [place], [place] [id number] MD Larry Salmeron MD Phone: [phone]
[2024-11-12 12:09] VITALS: BP 148/98; PULSE 74; RESP 16; TEMP 36.2; O2SAT 98
[2024-11-12] MEDS: LACTATED RINGERS 1,000 ML 42 ML IV (12:19)
--- NOTE | 2024-11-12 13:04 | PM.HP.IH.1 ---
History of Present Illness History of Present Illness Date Patient Seen: 11/12/24 Chief complaint: SDC Narrative: History of colon polyps [facility] Medical History (Updated 05/29/23 @ 15:11 by Gabi Bowers DO) History of tobacco use Cannabis dependence, daily use Voice absence Collapsed lung (~2006) Migraines (~2007) Scoliosis History of cold sores Psoriasis (~1984) Mumps (~1974) Chicken pox (~1973) Abnormal Pap smear of cervix (~1989) Hypothyroidism (~2006) Colon polyps (~2014) Surgical History Anesthesia History of throat surgery Fracture of larynx (~2006) History of third molar tooth extraction (~1989) Family History Child Age: 42 Brain cancer Father Age: 94 Prostate cancer Heart disease Hypertension High cholesterol Mother Age: 84 High cholesterol Social History marital status: unmarried,living together number of children: 1 household members: spouse lives independently: Yes housing: house education level: college occupational status: employed Smoking Status: Never smoker alcohol intake: current substance use type: marijuana (occasional) Meds Home Medications and Allergies Home Medications ?Medication ?Instructions ?Recorded ?Confirmed ?Type atorvastatin 20 mg tablet 20 mg PO BEDTIME #90 tabs 06/19/22 11/12/24 Rx levothyroxine 100 mcg tablet 100 mcg PO DAILY #90 tabs 06/19/22 11/12/24 Rx ondansetron 4 mg disintegrating See Rx Instructions .Route 01/01/23 11/12/24 Rx tablet .COMPLEX #10 tabs sumatriptan succinate 50 mg tablet 50 mg PO QDAYP PRN Pain (Scale 05/29/23 09/04/23 History (Imitrex) Score 1-3) acyclovir 400 mg tablet 400 mg PO 5XD #15 tabs 06/13/23 11/12/24 Rx sodium,potassium,mag sulfates 17.5 See Rx Instructions PO .COMPLEX 10/03/24 Rx gram-3.13 gram-1.6 gram oral soln #354 mL (Suprep Bowel Prep Kit) Allergies Allergy/AdvReac Type Severity Reaction Status Date / Time sulfamethoxazole (From AdvReac Severe vomiting Verified 11/12/24 12:03 BACTRIM) trimethoprim (From BACTRIM) AdvReac Severe vomiting Verified 11/12/24 12:03 Exam Vital Signs (past 8 hours): - 11/12/24 12:09 Temperature 97.2 F L Pulse Rate 74 Respiratory Rate 16 Blood Pressure 148/98 H Pulse Oximetry 98 Oxygen Delivery Method Room Air Oxygen Delivery Method Room Air Narrative Exam Narrative: Oropharynx free of lesions Chest clear to auscultation percussion Cardiac exam reveals no S3 or murmur Assessment & Plan Assessment & Plan narrative: History of colon polyps need for follow-up colonoscopy. Risks, benefits, and alternatives have been explained. Time-Based Coding :: [TOTAL MINUTES] spent with patient and on the chart (including review of chart, obtaining history, exam, reviewing outside data, placing orders, documenting exam and treatment plan, and counseling patient) on [DATE]. [employer] Document charge(s): No
--- NOTE | 2024-11-12 13:06 | PM.OP.COLON ---
Operative Date/Time/Diagnoses Date of procedure: 11/12/24 Time of procedure: 13:33 Pre-op diagnosis: See indication and findings Post-op diagnosis: same Procedure & Clinicians Study performed: Colonoscopy Same procedure(s) as scheduled: Yes Indications: Colon cancer screening Surgeon: Sebastian Islas Procedure Notes Procedure in detail: After informed consent was obtained the patient was placed in left lateral decubitus position. The video colonoscope was placed in the rectum slowly advanced cecum. Preparation was good. On slow withdrawal mucosa was carefully examined. The scope was removed. The patient tolerated procedure well. Blood loss none Complications none Sedation mac Findings 1. Scattered left-sided diverticulosis 2. Mm polyp at 30 cm cold biopsied and removed completely with Jumbo biopsy forceps Three. Slightly abnormal mucosa at 20 cm biopsies taken to rule out adenoma. I feel the suggest normal variant. Will be in touch regarding biopsies and whether we need to address the polyp at 20 cm. Otherwise follow-up colonoscopy in 5 years.
[2024-11-12 13:33] VITALS: BP 112/67; PULSE 60; RESP 18; TEMP 36.2; O2SAT 94
[2024-11-12 13:38] VITALS: BP 123/81; PULSE 60; RESP 15; O2SAT 96
[2024-11-12 13:44] VITALS: BP 124/79; PULSE 60; RESP 16; TEMP 36.2; O2SAT 95
[2024-11-12 13:51] VITALS: BP 126/79; PULSE 61; RESP 16; TEMP 36.3; O2SAT 98
== END 2024-11-12 13:56 | disposition home or self-care (01) ==
PROVIDERS: PCP Family Medicine; Referring Provider Internal Medicine Gastroenterology; Visit Provider Internal Medicine Gastroenterology
PROC: 0DJD8ZZ Inspection of Lower Intestinal Tract, Via Natural or Artificial Opening Endoscopic (ICD-10-PCS; CPT 45378; principal; 2024-11-12 12:15)
DX: Z12.11 Encounter for screening for malignant neoplasm of colon (principal); K57.30 Diverticulosis of large intestine without perforation or abscess without bleeding; D12.6 Benign neoplasm of colon, unspecified
CPT/HCPCS: 45380; J2704